=== PATIENT | male | born 1960 | race Caucasian/White ===

== ENCOUNTER 2020-09-17 08:48 | Inpatient (IN) | payer OTHER ==
[~2020-09-17] VITALS: Ht 180.3 cm; Wt 102.1 kg
--- NOTE | ~2020-09-17 | OP ---
[address] [address] OPERATIVE REPORT Name: MARLIN VOGT Room: [address] IN ..#: [id number] Admission: 09/17/20 Attend Phys: Caroline Salas Discharge: Date of : 56 Report #: [id number] THIS REPORT FOR: cc: Kaushal Hall MD, Michael MD [facility],Medical Records Staff ~ For Operative report details, please see the post operative note. By: 1310Medical Records Staff JULIA /SABINA
[2020-09-17 09:20] VITALS: BP 171/100
[2020-09-17] MEDS ORDERED: TRAMADOL 50 MG50 MG PO (09:26)
[2020-09-17] MEDS ORDERED: XANAX 0.25 MG0.25 MG PO (09:26)
[2020-09-17] MEDS ORDERED: SIMVASTATIN80 MG PO (09:26)
[2020-09-17 10:07] LABS: URINE BLOOD 1+ (Negative); URINE CLARITY CLEAR; URINE COLOR YELLOW; URINE GLUCOSE-RANDOM 2+ (Negative); URINE KETONES TRACE (Negative); URINE LEUKOCYTES-REFLEX NEGATIVE (Negative); URINE PROTEIN 1+ (Negative); URINE SPECIFIC GRAVITY 1.025 (1.005-1.030)
[2020-09-17 10:09] LABS: ICTOTEST (BILI CONFIRMATORY) Negative (Negative); URINE BILIRUBIN 1+ (Negative); URINE NITRITE-REFLEX POSITIVE (Negative)
[2020-09-17 10:11] LABS: BACTERIA-REFLEX >30 Many /HPF (None Seen); CASTS None Seen /LPF (None Seen); CRYSTALS None Seen /LPF (None Seen); MUCUS 0-3 Light strn/LPF (None Seen); SQUAMOUS 0-3 Few /LPF (0-3); URINE RBC 3-10 Few /HPF (0-2)
[2020-09-17 10:14] LABS: HEMATOCRIT 39.2 % (42.0-52.0); HEMOGLOBIN 13.6 gm/dL (14.0-18.0); MCH 27.9 pg (26.0-34.0); MCHC 34.7 g/dL (28.0-37.0); MCV 80.5 fL (80.0-100.0); MPV 6.8 fl. (7.2-11.1); NUCLEATED RBCS 0 /100WBC; PLATELET COUNT* 153 thou/uL (150-400); RBC 4.87 mil/uL (4.50-6.00); RDW-CV 15.2 % (10.5-14.5); WBC 14.4 thou/uL (4.0-11.0)
[2020-09-17 10:22] LABS: CALCIUM 9.2 mg/dL (8.5-10.1); CREATININE 1.4 mg/dL (0.6-1.3); POTASSIUM 4.9 mmol/L (3.5-5.1)
[2020-09-17 10:26] LABS: ALBUMIN 3.5 g/dL (3.4-5.0); TOTAL BILIRUBIN 2.3 mg/dL (<0.1-1.0); TOTAL PROTEIN 8.5 g/dL (6.4-8.2); URIC ACID* 3.5 mg/dL (2.6-7.2)
[2020-09-17 10:42] LABS: CHOLESTEROL 124 mg/dL (<200); HDL CHOLESTEROL 29 mg/dL (>40); LDL CHOLESTEROL 72 mg/dL (<100); SERUM ASSESSMENT Clear; TC:HDL 4.3 Ratio (Not establshd); TRIGLYCERIDE 115 mg/dL (<150); VLDL 23 mg/dL (<40)
[2020-09-17 10:50] LABS: ABSOLUTE LYMPHOCYTES 0.3 thou/uL (0.8-5.3); ABSOLUTE MONOCYTES 1.3 thou/uL (0.0-1.2); ABSOLUTE NEUTROPHILS 12.8 thou/uL (1.6-8.1); ANISOCYTOSIS 1+; PLATELET ESTIMATE ADEQUATE; POIKILOCYTOSIS 1+
[2020-09-17 16:05] VITALS: BP 147/90
--- NOTE | 2020-09-17 16:31 | EKG ---
[place] [address] ELECTROCARDIOGRAM REPORT Name: MARLIN VOGT Room: [place] [address] ADM IN [facility]#: [id number] Admission: 09/17/20 Attend Phys: Juliette Castro Discharge: Date of : 56 Date of Service: 09/17/20 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1960 Requested By: Juliette Castro Order Number: [id number] Katrin MD: Genaro Marie Measurements Intervals Lott Rate: 90 P: 41 MT: 170 QRS: -45 QRSD: 146 T: 32 QT: 368 QTc: 451 Interpretive Statements Sinus rhythm Ventricular premature complex RBBB and LAFB Inferior infarct, old No previous ECG available for comparison Electronically Signed On 09-17-2020 16:30:57 CDT by Genaro Marie [email or web address] <ELECTRONICALLY SIGNED> By: Genaro Marie MD, [facility] 09/17/20 1630 1037 1037 Genaro Marie MD, [facility] /EPI
[2020-09-17 19:27] VITALS: BP 132/69
[2020-09-17 20:10] VITALS: BP 132/69
[2020-09-17 20:34] VITALS: BP 140/83
[2020-09-17] MEDS ORDERED: ZOLOFT100 MG PO (20:58)
[2020-09-17] MEDS ORDERED: TRAZODONE HCL50 MG PO (20:59)
[2020-09-17 23:06] LABS: GLYCOHEMOGLOBIN (HGB A1C) 7.4 % (4.8-5.6)
[2020-09-18 04:35] VITALS: BP 116/71
[2020-09-18 04:38] LABS: HEMATOCRIT 30.7 % (42.0-52.0); MCH 28.2 pg (26.0-34.0); MCHC 34.9 g/dL (28.0-37.0); MPV 7.3 fl. (7.2-11.1); RBC 3.79 mil/uL (4.50-6.00); RDW-CV 14.7 % (10.5-14.5); WBC 10.8 thou/uL (4.0-11.0)
[2020-09-18 04:47] LABS: HEMOGLOBIN 10.7 gm/dL (14.0-18.0)
[2020-09-18 04:53] LABS: CALCIUM 7.6 mg/dL (8.5-10.1); CREATININE 1.2 mg/dL (0.6-1.3); POTASSIUM 3.9 mmol/L (3.5-5.1)
[2020-09-18 08:00] VITALS: BP 114/66
[2020-09-18 11:45] VITALS: BP 136/80
[2020-09-18 13:03] VITALS: BP 127/78
[2020-09-18 16:07] VITALS: BP 118/62
[2020-09-18 21:00] VITALS: BP 116/61
[2020-09-19 07:25] LABS: HEMATOCRIT 32.4 % (42.0-52.0); HEMOGLOBIN 11.1 gm/dL (14.0-18.0); MCHC 34.3 g/dL (28.0-37.0); MCV 81.6 fL (80.0-100.0); MPV 6.3 fl. (7.2-11.1); RBC 3.97 mil/uL (4.50-6.00); RDW-CV 14.9 % (10.5-14.5); WBC 14.5 thou/uL (4.0-11.0)
[2020-09-19 07:33] LABS: CREATININE 1.1 mg/dL (0.6-1.3); POTASSIUM 3.7 mmol/L (3.5-5.1)
[2020-09-19 08:00] VITALS: BP 145/77
[2020-09-19 17:00] VITALS: BP 149/77
[2020-09-19 20:15] VITALS: BP 133/73
[2020-09-19 23:57] VITALS: BP 133/73
[2020-09-20 04:57] LABS: HEMATOCRIT 33.5 % (42.0-52.0); HEMOGLOBIN 11.4 gm/dL (14.0-18.0); MCH 27.8 pg (26.0-34.0); MCHC 33.9 g/dL (28.0-37.0); MCV 81.9 fL (80.0-100.0); MPV 6.8 fl. (7.2-11.1); RBC 4.09 mil/uL (4.50-6.00); RDW-CV 14.7 % (10.5-14.5); WBC 13.2 thou/uL (4.0-11.0)
[2020-09-20 05:02] LABS: CALCIUM 8.3 mg/dL (8.5-10.1); POTASSIUM 4.3 mmol/L (3.5-5.1)
[2020-09-20 08:15] VITALS: BP 169/88
[2020-09-20 09:05] LABS: HEMATOCRIT 34.2 % (42.0-52.0); HEMOGLOBIN 11.6 gm/dL (14.0-18.0); MCH 27.3 pg (26.0-34.0); MCHC 33.8 g/dL (28.0-37.0); MCV 80.9 fL (80.0-100.0); MPV 6.3 fl. (7.2-11.1); NUCLEATED RBCS 0 /100WBC; PLATELET COUNT* 200 thou/uL (150-400); RBC 4.23 mil/uL (4.50-6.00); RDW-CV 14.8 % (10.5-14.5); WBC 15.2 thou/uL (4.0-11.0)
[2020-09-20 09:16] LABS: ALBUMIN 2.4 g/dL (3.4-5.0); CALCIUM 8.6 mg/dL (8.5-10.1); TOTAL BILIRUBIN 1.5 mg/dL (<0.1-1.0); TOTAL PROTEIN 6.9 g/dL (6.4-8.2)
[2020-09-20 09:39] LABS: ABSOLUTE LYMPHOCYTES 1.1 thou/uL (0.8-5.3); ABSOLUTE MONOCYTES 0.6 thou/uL (0.0-1.2); ABSOLUTE NEUTROPHILS 13.5 thou/uL (1.6-8.1); ANISOCYTOSIS 1+; PLATELET ESTIMATE ADEQUATE; POIKILOCYTOSIS 1+
[2020-09-20 16:00] VITALS: BP 162/93
[2020-09-20 20:02] VITALS: BP 148/76
[2020-09-21 00:18] VITALS: BP 125/68
[2020-09-21 04:41] VITALS: BP 156/95
[2020-09-21 07:55] VITALS: BP 152/94
[2020-09-21 08:33] LABS: HEMATOCRIT 34.6 % (42.0-52.0); HEMOGLOBIN 11.5 gm/dL (14.0-18.0); MCH 27.2 pg (26.0-34.0); MCHC 33.2 g/dL (28.0-37.0); MCV 82.1 fL (80.0-100.0); MPV 7.4 fl. (7.2-11.1); RBC 4.22 mil/uL (4.50-6.00); WBC 14.3 thou/uL (4.0-11.0)
[2020-09-21 08:51] LABS: CALCIUM 8.5 mg/dL (8.5-10.1); CREATININE 1.1 mg/dL (0.6-1.3)
[2020-09-21 15:38] VITALS: BP 130/70
[2020-09-21 19:56] VITALS: BP 121/62
[2020-09-22 04:45] LABS: HEMATOCRIT 33.3 % (42.0-52.0); HEMOGLOBIN 11.5 gm/dL (14.0-18.0); MCHC 34.4 g/dL (28.0-37.0); MCV 81.3 fL (80.0-100.0); MPV 5.8 fl. (7.2-11.1); RBC 4.1 mil/uL (4.50-6.00); RDW-CV 15.4 % (10.5-14.5); WBC 9.2 thou/uL (4.0-11.0)
[2020-09-22 05:02] LABS: CALCIUM 8.4 mg/dL (8.5-10.1); POTASSIUM 3.8 mmol/L (3.5-5.1)
[2020-09-22 16:16] VITALS: BP 126/84
[2020-09-22 20:00] VITALS: BP 170/90
[2020-09-23 00:37] VITALS: BP 192/98
[2020-09-23 04:11] VITALS: BP 187/98
[2020-09-23 04:28] LABS: ABSOLUTE BASOPHILS 0.1 thou/uL (0.0-0.2); ABSOLUTE EOSINOPHILS 0.1 thou/uL (0.0-0.7); ABSOLUTE LYMPHOCYTES 0.8 thou/uL (0.8-5.3); ABSOLUTE MONOCYTES 0.5 thou/uL (0.0-1.2); ABSOLUTE NEUTROPHILS 7.8 thou/uL (1.6-8.1); BASOPHILS 1.3 %; EOSINOPHILS 1.6 %; HEMATOCRIT 36.9 % (42.0-52.0); HEMOGLOBIN 12.7 gm/dL (14.0-18.0); MCH 27.6 pg (26.0-34.0); MCHC 34.4 g/dL (28.0-37.0); MCV 80.4 fL (80.0-100.0); MONOCYTES 5.9 %; NUCLEATED RBCS 0 /100WBC; PLATELET COUNT* 303 thou/uL (150-400); POLYS 83.2 %; RBC 4.59 mil/uL (4.50-6.00); WBC 9.3 thou/uL (4.0-11.0)
[2020-09-23 04:39] LABS: ALBUMIN 2.3 g/dL (3.4-5.0); CALCIUM 8.8 mg/dL (8.5-10.1); CREATININE 0.9 mg/dL (0.6-1.3); TOTAL BILIRUBIN 0.8 mg/dL (<0.1-1.0); TOTAL PROTEIN 6.8 g/dL (6.4-8.2)
[2020-09-23 07:40] VITALS: BP 174/102
[2020-09-23 16:19] VITALS: BP 168/92
[2020-09-23 20:00] VITALS: BP 172/94
[2020-09-24 07:15] VITALS: BP 172/94
[2020-09-24 16:26] VITALS: BP 150/99
[2020-09-24 19:58] VITALS: BP 169/90
[2020-09-25 09:09] VITALS: BP 168/97
[2020-09-25 11:50] LABS: HEMOGLOBIN 12.6 gm/dL (14.0-18.0); MCH 27.2 pg (26.0-34.0); MCHC 34.1 g/dL (28.0-37.0); MCV 79.7 fL (80.0-100.0); MPV 5.8 fl. (7.2-11.1); NUCLEATED RBCS 0 /100WBC; PLATELET COUNT* 324 thou/uL (150-400); RBC 4.65 mil/uL (4.50-6.00); RDW-CV 15.3 % (10.5-14.5); WBC 10.9 thou/uL (4.0-11.0)
[2020-09-25 12:16] LABS: ABSOLUTE LYMPHOCYTES 1.1 thou/uL (0.8-5.3); ABSOLUTE MONOCYTES 0.7 thou/uL (0.0-1.2); ABSOLUTE NEUTROPHILS 9.2 thou/uL (1.6-8.1); PLATELET ESTIMATE ADEQUATE
[2020-09-25 16:23] VITALS: BP 184/83
[2020-09-25 19:45] VITALS: BP 178/80
[2020-09-26 01:39] VITALS: BP 133/73
[2020-09-26 07:10] VITALS: BP 167/82
[2020-09-26 10:08] VITALS: BP 133/73
[2020-09-26 14:29] VITALS: BP 167/82
--- NOTE | 2020-09-26 15:08 | PATH ---
[facility] [address] [place] [address] PATHOLOGY RPT PROCEDURE Name: MARLIN VOGT Room: [address] IN [facility].#: [id number] Admission: 09/17/20 Date of : 56 Discharge: Report #: [id number] Path Case #: [id number] [facility] Accession Number: [id number] . 01 Material submitted: . PART A: digit - RIGHT FIFTH DIGIT. Modifiers: right, fifth PART B: foot - FIFTH METATARSAL. Modifiers: fifth . 01 Clinical history: . 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 02 Diagnosis: A. Right fifth digit: - Benign toe with extensive acute inflammation and necrosis of soft tissues and osteomyelitis of underlying phalangeal bone. See comment. . B. Fifth metatarsal: - Benign osteocartilaginous segment with acutely inflamed attached soft tissues and osteomyelitis extending very close to but not clearly through inked transection margin. See comment. . (KARINA:rashad; 09/26/2020) MBAdeline 09/26/2020 1255 Local . 02 Comment: Although osteomyelitis is not seen to extend through the proximal articular aspect of the toe (A), it is easily identified in the fifth metatarsal segment concentrated at the distal/subarticular aspect, however, low-grade subtle osteomyelitis extends to within approximately 1 mm of the inked transection margin, without frankly involving it. . Discussed with Dr. Alexander at approximately 0940 on 09/26/2020. . (KARINA:rashad; 09/26/2020) . 02 Electronically signed: . Laz Yancey MD, Pathologist NPI- [id number] . 01 Gross description: . A. Received in formalin labeled "Marlin Vogt R fifth digit" is a toe disarticulation specimen measuring 4.8 x 2.6 x 2.5 cm. A vaughn-yellow nail is present measuring 1.2 x 0.3 x 0.2 cm. The proximal skin and soft tissue margin is smooth and consistent with a surgical margin and the proximal bone margin is a concave cartilage covered disarticulation. The margin is inked black. The soft [place] [address] PATHOLOGY RPT PROCEDURE Name: MARLIN VOGT Room: [address] IN .R.#: [id number] Admission: 09/17/20 Date of : 56 Discharge: Report #: [id number] Path Case #: [id number] wilkerson-green and discolored, possibly consistent with necrosis, over a 3.5 x 2.6 x 2.5 cm area. This area diffusely abuts the skin and soft tissue margins and may involve the bone disarticulation. A digital media representative cross-section is submitted in cassettes A1-A2 following decalcification. Also present within the container is a separate fragment of green-cruz necrotic skin and underlying soft tissue measuring 6.2 x 4.0 x 1.2 cm. [employer] sections of the skin and soft tissue are submitted in cassette A3. . B. Received in formalin labeled "Marlin Vogt, R fifth metatarsal" is a segment of vaughn-white bone measuring 3.2 x 2.3 x 1.8 cm. The external surface is cruz-vaughn and discolored, possibly consistent with necrosis. The specimen has a smooth surgical margin at one aspect (inked black) and a convex cartilage covered disarticulation at the opposite aspect. A digital media representative cross-section is submitted in cassette B1 following decalcification. ([facility]; 09/23/2020) [facility] 09/23/2020 0909 Local . 02 Pathologist provided ICD-10: L98.9, M86.171, M79.9 . 02 CPT . 711035, 643407, 660170, 613872 Specimen Comment: A courtesy copy of this report has been sent to [phone] Specimen Comment: [phone] Specimen Comment: Report sent to , / Performed at: 01 [facility] [address], [place], [place] [id number] MD Ry Suero MD Phone: [phone] Performed at: 02 [facility] [address], [place], [place] [id number] MD Laz Yancey MD Phone: [phone]
[2020-09-26 16:34] VITALS: BP 178/96
[2020-09-26 20:00] VITALS: BP 182/89
[2020-09-27] VITALS: BP 157/84
[2020-09-27 08:00] VITALS: BP 185/102
[2020-09-27 08:20] VITALS: BP 185/102
[2020-09-27] MEDS ORDERED: HYDROCODON-ACE1 EAC7 PO (09:20)
[2020-09-27] MEDS ORDERED: HUMULIN R100 UNIT/1 SUBQ (09:20)
[2020-09-27] MEDS ORDERED: METFORMIN HCL500 M1 PO (09:20)
[2020-09-27] MEDS ORDERED: LOTENSIN20 MG PO (09:20)
[2020-09-27 13:02] VITALS: BP 185/102
[2020-09-27 16:00] VITALS: BP 177/100
[2020-09-27 16:23] VITALS: BP 185/102
--- NOTE | 2020-09-28 18:06 | PATH ---
[facility] [address] [place] [address] PATHOLOGY RPT PROCEDURE Name: MARLIN VOGT Room: [address] IN ..#: [id number] Admission: 09/17/20 Date of : 56 Discharge: 09/27/20 Report #: [id number] Path Case #: [id number] [facility] Accession Number: [id number] . 01 Material submitted: . foot - CLEAN MARGIN RIGHT 5TH METATARSAL. Modifiers: right, fifth, METATARSAL . 01 Clinical history: . DEBRIDEMENT WITH IRRIGATION DIAGNOSIS: GOUT, GANGRENE, AND OSTEOMYELITIS RIGHT FOOT . 02 Diagnosis: Clean margin right fifth metatarsal: - Benign and viable cancellous bone with acute inflammatory debris within marrow space attributable to recent surgery, without definite osteomyelitis identified. (KARINA:rashad; 09/28/2020) Adeline 09/28/2020 1446 Local . 02 Electronically signed: . Laz Yancey MD, Pathologist NPI- [id number] . 01 Gross description: . Received in formalin labeled "Vogt, Marlin, clean margin right fifth metatarsal" is a cross section of bone measuring 1.5 x 0.8 x 0.4 cm. No lesions are identified. The specimen is submitted entirely in cassette A1 without sectioning, following decalcification. ([facility]; 09/27/2020) [facility] 09/27/2020 1132 Local . 02 Pathologist provided ICD-10: M10.9, I96, M86.171 . 02 CPT . 825172, 833031 Specimen Comment: A courtesy copy of this report has been sent to [phone] Specimen Comment: [phone] Specimen Comment: Report sent to ,DR ROGER / DR GARCIA Performed at: 01 [facility] [address], [place], [place] [id number] MD Ry Suero MD Phone: [phone] Performed at: 02 [facility] [address] [address] [place], [place] [id number] MD Laz Yancey MD Phone: [phone]
== END 2020-09-27 17:28 | disposition home health service (06) | DRG 854 ==
LOC: M.ERS 08:48 → M.ORTHSURG 12:03 → M.TBA-ER 12:03 → M.ORTHSURG 20:10 → M.2W 20:20 → M.ORTHSURG 09-18 13:04
PROVIDERS: Family Medicine; Internal Medicine; Nurse Practitioner Family; Podiatrist; ADMIT Internal Medicine; ATTEND Internal Medicine
PROC: 0Y6M0ZF Detachment at Right Foot, Partial 5th Ray, Open Approach (ICD-10-PCS; principal; 2020-09-20)
PROC: 05HY33Z Insertion of Infusion Device into Upper Vein, Percutaneous Approach (ICD-10-PCS; 2020-09-21)
PROC: 0QBP0ZZ Excision of Left Metatarsal, Open Approach (ICD-10-PCS; 2020-09-26)
DX: A41.9 Sepsis, unspecified organism (principal); E87.1 Hypo-osmolality and hyponatremia; N30.01 Acute cystitis with hematuria; L02.611 Cutaneous abscess of right foot; L03.115 Cellulitis of right lower limb; M86.8X7 Other osteomyelitis, ankle and foot; E11.52 Type 2 diabetes mellitus with diabetic peripheral angiopathy with gangrene; I96 Gangrene, not elsewhere classified; S90.851A Superficial foreign body, right foot, initial encounter; E11.65 Type 2 diabetes mellitus with hyperglycemia; E78.5 Hyperlipidemia, unspecified; G47.00 Insomnia, unspecified; F41.9 Anxiety disorder, unspecified; E11.69 Type 2 diabetes mellitus with other specified complication; I10 Essential (primary) hypertension; D64.9 Anemia, unspecified; E11.621 Type 2 diabetes mellitus with foot ulcer; Z20.822 Contact with and (suspected) exposure to COVID-19; B96.20 Unspecified Escherichia coli [E. coli] as the cause of diseases classified elsewhere; Z82.49 Family history of ischemic heart disease and other diseases of the circulatory system; Z98.49 Cataract extraction status, unspecified eye; Z88.1 Allergy status to other antibiotic agents; X58.XXXA Exposure to other specified factors, initial encounter; Y93.89 Activity, other specified; Y92.89 Other specified places as the place of occurrence of the external cause; Y99.8 Other external cause status

== ENCOUNTER 2020-10-07 17:42 | Emergency (ER) | payer OTHER ==
[~2020-10-07] VITALS: Ht 180.3 cm; Wt 89.8 kg
[~2020-10-07 17:42] MED LIST: HUMULIN R100 UNIT/1 SUBQ; HYDROCODON-ACE1 EAC7 PO; LOTENSIN20 MG PO; METFORMIN HCL500 M1 PO; SIMVASTATIN80 MG PO; TRAMADOL 50 MG50 MG PO; TRAZODONE HCL50 MG PO; XANAX 0.25 MG0.25 MG PO; ZOLOFT100 MG PO
[2020-10-07 18:48] VITALS: BP 148/76
== END 2020-10-07 18:51 | disposition home or self-care (01) ==
LOC: M.ERS 17:42
DX: Z45.2 Encounter for adjustment and management of vascular access device (principal); Z88.8 Allergy status to other drugs, medicaments and biological substances